=== PATIENT | male | born 1980 | race Caucasian/White ===

== ENCOUNTER 2017-06-11 04:14 | Day surgery (SDC) | payer OTHER ==
[~2017-06-11] VITALS: Ht 182.9 cm; Wt 99.7 kg
[2017-06-11 05:02] LABS: BASO # 0.1 (0.0-0.2); BASO % 0.6 % (0.0-2.0); EOS # 0.3 (0.0-0.7); EOS % 1.4 % (0-4.0); GRAN # 14.4 (1.4-6.5); GRAN % 79.2 % (42.2-75.2); HEMATOCRIT 47.2 % (42.0-52.0); HEMOGLOBIN 15.7 g/dl (13.5-18.0); LYMPH % 11.3 % (20.0-51.0); MEAN CELL VOLUME 85 fl (80.0-100.0); MEAN CORPUSCULAR HEMOGLOBIN 28 pg (27.0-31.0); MEAN CORPUSCULAR HGB CONC 33 g/dl (33.0-37.0); MEAN PLATELET VOLUME 10.9 fl (7.4-10.4); MONO # 1.3 (0.1-0.6); MONO % 7.1 % (1.7-9.3); PLATELET COUNT 327 K/mm3 (130-400); RED BLOOD COUNT 5.54 M/mm3 (4.20-5.60); REDCELL DISTRIBUTION WIDTH-CV 13.2 % (11.5-14.5)
[2017-06-11 05:13] LABS: ALBUMIN 4.6 gm/dL (3.5-5.0); C-REACTIVE PROTEIN 4.7 mg/dL (0.0-0.9); CALCIUM 9.8 mg/dL (8.4-10.2); CREATININE, serum 1.04 mg/dL (0.66-1.25); TOTAL PROTEIN 8.2 gm/dL (6.4-8.2)
[2017-06-11 06:03] LABS: COLLECTION METHOD CLEAN CATCH
[2017-06-11 06:14] LABS: MUCOUS Present /lpf; PH 5 (5-8); SQUAMOUS EPITHELIAL None Seen /hpf; URINE APPEARANCE Clear; URINE BACTERIA None Seen /hpf; URINE BILIRUBIN Negative (NEGATIVE); URINE BLOOD Negative (NEGATIVE); URINE COLOR Yellow; URINE GLUCOSE Negative (NEGATIVE); URINE KETONE Negative (NEGATIVE); URINE LEUKOCYTE ESTERASE Negative (NEGATIVE); URINE NITRATE Negative (NEGATIVE); URINE PROTEIN(semi-quant) Negative (NEGATIVE); URINE RBC 0-2 /hpf; URINE UROBILINOGEN Negative (NEGATIVE)
[2017-06-11 07:59] VITALS: BP 125/72; PULSE 83; TEMP 98.3
[2017-06-11 11:37] VITALS: BP 105/70; PULSE 106; TEMP 98.9
[2017-06-11 17:32] VITALS: BP 109/62; PULSE 106; TEMP 99.2
[2017-06-11 21:07] VITALS: BP 104/64; PULSE 92; TEMP 98.1
[2017-06-11 22:41] VITALS: BP 104/64; PULSE 92; TEMP 98.1
--- NOTE | 2017-06-12 01:20 | NUR ---
POST-OP VS WERE NEVER COMPLETED DURING DAY SHIFT.
--- NOTE | 2017-06-12 01:52 | NUR ---
RESUMED CARE OF PATIENT. 3 LAP SITES TO THE ABDOMEN THAT ARE CDI WITH BANDAIDS. REPORTS PAIN IS MINIMAL. PATIENT STATES HE HAD NAUSEA IMMEDIATELY AFTER EATING AND THEN THREW UP. ONCE HE WAS DONE THROWING UP, HE FELT FINE. GAVE HIM SOME ICE CREAM A LITTLE LATER AND HE TOLERATED THAT. WILL SALINE LOCK WHEN TAKING GOOD FLUID INTAKE. RECEIVING FLAGYL AND ZOSYN FOR ANTIBIOTICS. HAS BEEN UP AMBULATING IN ROOM. VSS. PATIENT HAS NO OTHER COMPLAINTS AT THIS TIME. CALL LIGHT WITHIN REACH. WILL CONTINUE TO MONITOR.
[2017-06-12 03:35] VITALS: BP 100/63; PULSE 73; TEMP 98.1
--- NOTE | 2017-06-12 05:25 | NUR ---
PATIENT HAD UNEVENTFUL NIGHT. STATES THAT HIS PAIN IS CONTROLLED. DID NOT HAVE TO GIVE ANY PAIN MEDICATION OVER NIGHT. NAUSEA IS BETTER. ANTIBIOTICS HUNG. INDEPENDENT IN ROOM. PATIENT HAS NO OTHER COMPLAINTS AT THIS TIME. CALL LIGHT WITHIN REACH. WILL CONTINUE TO MONITOR.
--- NOTE | 2017-06-12 05:31 | NUR ---
WILL GIVE REPORT TO DAY SHIFT NURSE.
[2017-06-12 06:27] VITALS: BP 104/63; PULSE 73; TEMP 98.3
[2017-06-12 07:06] LABS: BASO # 0.1 (0.0-0.2); BASO % 0.3 % (0.0-2.0); GRAN # 17.6 (1.4-6.5); HEMATOCRIT 37.5 % (42.0-52.0); LYMPH # 1.2 (1.2-3.4); LYMPH % 5.8 % (20.0-51.0); MEAN CELL VOLUME 87 fl (80.0-100.0); MEAN CORPUSCULAR HEMOGLOBIN 29 pg (27.0-31.0); MEAN CORPUSCULAR HGB CONC 33 g/dl (33.0-37.0); MEAN PLATELET VOLUME 11.1 fl (7.4-10.4); MONO % 4.9 % (1.7-9.3); PLATELET COUNT 266 K/mm3 (130-400); RED BLOOD COUNT 4.31 M/mm3 (4.20-5.60); REDCELL DISTRIBUTION WIDTH-CV 13.4 % (11.5-14.5)
[2017-06-12 07:10] LABS: HEMOGLOBIN 12.4 g/dl (13.5-18.0)
[2017-06-12 10:03] VITALS: BP 108/70; PULSE 63; TEMP 98.6
[2017-06-12 13:10] VITALS: BP 101/75; PULSE 72; TEMP 97.5
[2017-06-12 17:16] VITALS: BP 103/66; PULSE 72; TEMP 98.3
[2017-06-12 22:40] VITALS: BP 107/63; PULSE 83; TEMP 98.5
--- NOTE | 2017-06-13 | NUR ---
RESUMED CARE OF PATIENT. 3 LAP SITES TO THE ABDOMEN THAT ARE CDI WITH BANDAIDS. REPORTS PAIN AT A 3/10, GAVE NORCO. INDEPENDENT IN ROOM. WBC COUNT WAS 20, WILL WAIT AND SEE WHAT IT IS IN THE MORNING. INT. TAKING IN GOOD FLUID INTAKE. HAS AMBULATED MULTIPLE TIMES TODAY. TOLERATING GENERAL DIET, NO NAUSEA. PATIENT HAS NO OTHER COMPLAINTS AT THIS TIME. CALL LIGHT WITHIN REACH. WILL CONTINUE TO MONITOR.
[2017-06-13 02:29] VITALS: BP 110/75; PULSE 96; TEMP 98.8
--- NOTE | 2017-06-13 05:28 | NUR ---
PATIENT HAD UNEVENTFUL NIGHT. GAVE NORCO DUE TO PATIENT COMPLAINING OF PAIN. HUNG ANTIBIOTICS. INT. AFEBRILE OVER NIGHT. WILL SEE WHAT WBC COUNT IS TODAY. PATIENT HAS NO OTHER COMPLAINTS AT THIS TIME. CALL LIGHT WITHIN REACH. WILL GIVE REPORT TO DAY SHIFT NURSE.
[2017-06-13 06:03] VITALS: BP 101/55; PULSE 76; TEMP 97.5
[2017-06-13 07:31] LABS: BASO % 0.2 % (0.0-2.0); EOS % 0.1 % (0-4.0); GRAN # 14.9 (1.4-6.5); GRAN % 83.7 % (42.2-75.2); LYMPH # 1.8 (1.2-3.4); LYMPH % 9.9 % (20.0-51.0); MEAN CELL VOLUME 89 fl (80.0-100.0); MEAN CORPUSCULAR HGB CONC 33 g/dl (33.0-37.0); MEAN PLATELET VOLUME 11.9 fl (7.4-10.4); MONO % 5.3 % (1.7-9.3); PLATELET COUNT 292 K/mm3 (130-400); RED BLOOD COUNT 4.03 M/mm3 (4.20-5.60); REDCELL DISTRIBUTION WIDTH-CV 13.7 % (11.5-14.5)
[2017-06-13 07:34] LABS: HEMATOCRIT 35.7 % (42.0-52.0); HEMOGLOBIN 11.6 g/dl (13.5-18.0); MEAN CORPUSCULAR HEMOGLOBIN 29 pg (27.0-31.0)
--- NOTE | 2017-06-13 08:00 | NUR ---
PATIENT IS ORIENTED BUT DROWSY. PATIENT STAYED UP LATE PLAYING VIDEO GAMES. VSS. PATIENT C/O LEFT SIDE PAIN RATED 4-5 WITH ACTIVITY. PATIENT INDEPENDENT IN ROOM. GAVE PRN NORCO, TWO TABS. NO C/O N/V. BREAKFAST TRAY ORDERED. ABDOMINAL LAP SITES CD&I. X2 LAP SITES FIDEL AND SUPER PUBIC LAP SITE COVERED WITH BANDAID. BOWL SOUNDS X4 QUADS. HEAD TO TOE ASSESSMENT COMPLETE. NO OTHER NEEDS. CALL LIGHT IN REACH.
[2017-06-13 10:52] VITALS: BP 116/69; PULSE 86; TEMP 97.9
--- NOTE | 2017-06-13 11:37 | NUR ---
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 No spiritual needs right now.
[2017-06-13 14:44] VITALS: BP 125/75; PULSE 84; TEMP 98.4
--- NOTE | 2017-06-13 16:00 | NUR ---
AT BEDSIDE. SEE DISCHARGE ORDERS.
--- NOTE | 2017-06-13 16:10 | NUR ---
PATIENT DISCHARGINE HOME VIA AMBULATORY TO PERSONAL VEHICLE WITH FRIEND. GAVE DISCHARGE INSTRUCTIONS, PRESCRIPTIONS & FOLLOW UP APT. ANSWERED ALLS QUESTIONS/CONCERNS. DC'D RIGHT AC IV. IV CATH TIP INTACT AND PATIENT TOLERATED WELL. COVERED SITE WITH BANDAID. SENT HOME PERSONAL BELONGINGS. PATIENT DISCHARGED.
== END 2017-06-13 16:10 | disposition home or self-care (01) ==
LOC: COL.ER 04:14 → SDCO 07:04 → SURG 07:05 → SDCO 06-13 16:10
PROVIDERS: Emergency Medicine; Surgery
DX: K35.2 Acute appendicitis with generalized peritonitis (principal); K64.8 Other hemorrhoids; Z87.442 Personal history of urinary calculi
CPT/HCPCS: OP; G0378; J1100; J1170; J1885; J2270; J2405; J2543; J2704; J2710; J3010; J7030; J7042; J7050; J7120; Q9967

== ENCOUNTER 2022-02-26 17:34 | Emergency (ER) | payer OTHER ==
[~2022-02-26] VITALS: Ht 182.9 cm; Wt 90.0 kg
[2022-02-26 17:55] VITALS: TEMP 97.1
[2022-02-26 18:58] VITALS: BP 120/79; PULSE 70
== END 2022-02-26 19:05 | disposition home or self-care (01) ==
LOC: COL.ER 17:34
PROVIDERS: Emergency Medicine
DX: B82.0 Intestinal helminthiasis, unspecified (principal); Z87.19 Personal history of other diseases of the digestive system

== ENCOUNTER 2022-03-10 15:26 | Emergency (ER) | payer OTHER ==
[~2022-03-10] VITALS: Ht 182.9 cm; Wt 87.7 kg
[2022-03-10 15:41] VITALS: TEMP 97.8
[2022-03-10 16:44] LABS: BASO # 0.1 K/mm3 (0.0-0.2); EOS # 0.3 K/mm3 (0.0-0.7); EOS % 3.1 % (0.0-4.0); GRAN # 5.2 K/mm3 (1.4-6.5); GRAN % 64.5 % (42.2-75.2); HEMATOCRIT 45.9 % (42.0-52.0); HEMOGLOBIN 15.6 g/dl (13.5-18.0); LYMPH # 2.1 K/mm3 (1.2-3.4); LYMPH % 26.2 % (20.0-51.0); MEAN CELL VOLUME 86 fl (80.0-100.0); MEAN CORPUSCULAR HEMOGLOBIN 29 pg (27-31); MEAN CORPUSCULAR HGB CONC 34 g/dl (33.0-37.0); MEAN PLATELET VOLUME 11.3 fl (7.4-10.4); MONO # 0.4 K/mm3 (0.1-0.6); PLATELET COUNT 290 K/mm3 (130-400); RED BLOOD COUNT 5.35 M/mm3 (4.20-5.60); REDCELL DISTRIBUTION WIDTH-CV 12.8 % (11.5-14.5)
[2022-03-10 17:00] LABS: ALBUMIN 4.2 gm/dL (3.5-5.0); BILIRUBIN,TOTAL 0.7 mg/dL (0.2-1.2); C-REACTIVE PROTEIN 0.28 mg/dL (0.00-0.50); CALCIUM 9.1 mg/dL (8.4-10.2); POTASSIUM 3.7 mmol/L (3.5-4.5); TOTAL PROTEIN 7.3 gm/dL (6.2-8.1)
[2022-03-10] MEDS ORDERED: PRIL40 PO (17:46)
[2022-03-10] MEDS ORDERED: CARAFATE 1GM1 G PO (18:16)
[2022-03-10 18:25] VITALS: BP 130/85; PULSE 65
== END 2022-03-10 18:25 | disposition home or self-care (01) ==
LOC: COL.ER 15:26
PROVIDERS: Physician Assistant
DX: R10.84 Generalized abdominal pain (principal); Z87.891 Personal history of nicotine dependence
CPT/HCPCS: J2405; J7030

== ENCOUNTER → 2022-03-22 | Outpatient (CLI) | payer OTHER ==
[~2022-03-22] MED LIST: CARAFATE 1GM1 G PO; PRIL40 PO
== END ==
LOC: COL.RAD 10:24
DX: N20.0 Calculus of kidney (principal); K57.30 Diverticulosis of large intestine without perforation or abscess without bleeding
CPT/HCPCS: Q9967